=== PATIENT | female | born 1950 | race Caucasian/White ===

== ENCOUNTER → 2016-07-19 | Outpatient (CLI) | payer OTHER ==
[~2016-07-19] MED LIST: ACIPHEX20 MG PO; ALLEGRA PO; ALLEGRA-D1 TAB.SR1; ALLEGRA-D1 TAB.SR1 PO; AMBIEN CR PO; B COMPLEX/FOLIC1 TAB PO; BACLOFEN10 MG PO; BENADRYL PO; BENADRYL25 M3 PO; BLACK COHOSH PO; BONIVA150 MG; CATAFLAM50 MG; CATAFLAM50 MG PO; CLA; CORAL CALCIUM PO; CORAL CALCIUM1 EACH PO; FAMOTIDINE PO; FISH OIL; FISH OIL PO; FLONASE 0.05% N16 G1 INH; FOOD ENZYMES; GLUCOSAMINE; GLUCOSAMINE/CHONDROI PO; HAIR SKIN AND NAILS; KCL PO; KLONOPIN0.5 MG; KLONOPIN0.5 MG PO; KLONOPIN1 MG PO; LEVSIN0.125 M1 PO; LIMBITROL; LIMBITROL PO; LIMBITROL1 TAB PO; LIVER CLEANSE; LIVER CLEANSE PO; LYSINE; LYSINE PO; MACRODANTIN; MSM; MULTI-VITAMIN1 TAB PO; NORCO 10-325 TA1 TAB; NORCO 10-325 TA1 TAB PO; OXAZEPAM PO; PHENERGAN; PHENERGAN PO; PHENERGAN25 MG PO; POTASSIUM PO; PREDNISONE10 MG PO; PRILOSEC PO; PRILOSEC40 MG PO; PROGESTERONE CREAM; PROTONIX PO; REMIFEMIN PO; SEROVITAL PO; SONATA PO; STAHIST AD TAB1 EACH PO; SYMBICORT 16010.2 GM INH; VAGIFEM25 MCG VG; VICODIN; VICODIN PO; VIT B COMPLEX PO; VIT E PO; VITAL-D RX TABL1 TAB PO; VITAMIN C PO; ZANAFLEX; ZANAFLEX PO; ZANAFLEX6 MG PO; ZIPSOR25 MG PO; [UNRECOGNIZED DRUG - OTHER]; [UNRECOGNIZED DRUG - OTHER]; [UNRECOGNIZED DRUG - OTHER] PO; [UNRECOGNIZED DRUG - OTHER] PO
[2016-07-19 15:33] LABS: ALBUMIN SERUM 4.4 g/dL (3.5-5.0); BILIRUBIN,TOTAL 0.5 mg/dL (0.2-2.0); BUN/CREATININE RATIO 21.11; CREATININE SERUM 0.9 mg/dL (0.6-1.4); GLOM FILT RATE Estimated 67.1 mL/min (>60); POTASSIUM 3.4 mmol/L (3.5-5.1); PROTEIN TOTAL SERUM 8.2 g/dL (6.0-8.3)
== END | disposition home or self-care (01) ==
LOC: SLAB 14:41
PROVIDERS: Internal Medicine Gastroenterology
DX: K83.1 Obstruction of bile duct (principal); R10.11 Right upper quadrant pain; R13.10 Dysphagia, unspecified; R11.0 Nausea; Z88.0 Allergy status to penicillin
CPT/HCPCS: 36415; 80053